=== PATIENT | female | born 1980 | race Caucasian/White ===

== ENCOUNTER 2017-01-17 16:52 | Emergency (ER) | payer OTHER ==
--- NOTE | ~2017-01-17 | ER ---
PATIENT'S NAME: CHRISTOPHE JURADO [facility] AGE: 36 Y [address] ROOM: [place] [address] LOCATION: [facility] ADMIT DATE: 01/17/2017 ER/Outpatient Report DISCHARGE DATE: 01/17/2017 FAMILY PHYSICIAN: Schuyler King MD ATTENDING PHYSICIAN: Bo Angeles Time of Patient Arrival: 1652 hours. Time of Patient Evaluation: 1700 hours. CHIEF COMPLAINT: Lower abdominal pain. HISTORY OF PRESENT ILLNESS: This is a 36-year-old female who presents to the ER with some lower abdominal pain that has been going on for the past day and a half. She states that it makes her feel nauseated and she does have history of constipation. Her last bowel movement was yesterday. She states it was normal for her. She also states that she has had some pain with urination for the past day because of her abdominal pain. She states that she does have a history of ovarian cysts and this is the exact pain that she has when she had these ovarian cysts in the past. She did not see her primary care physician for this pain. ALLERGIES: NO KNOWN ALLERGIES. MEDICATIONS: Please see medication list in nurse's notes. PAST MEDICAL HISTORY: Ovarian cysts. PAST SURGICAL HISTORY: 1. Uterine ablation. 2. Tubes tied. 3. sections. 4. Oral surgery. 5. Tonsils and adenoids. 6. Cholecystectomy. SOCIAL HISTORY: Smokes cigarettes for the last 20 years. Denies any drug or alcohol use. REVIEW OF SYSTEMS: A 10-point review of systems was completed and was negative with the exception of those discussed in the HPI. PATIENT'S NAME: CHRISTOPHE JURADO [facility] AGE: 36 Y [address] ROOM: [place], [place] [address] LOCATION: ED ADMIT DATE: 01/17/2017 ER/Outpatient Report DISCHARGE DATE: 01/17/2017 FAMILY PHYSICIAN: Schuyler King MD ATTENDING PHYSICIAN: Bo Angeles PHYSICAL EXAMINATION: VITAL SIGNS: Height 5 feet 8 inches, stated; weight 127.9 kg, taken; blood pressure is 155/72; pulse 93; respirations 16; temperature 98.9 degrees, tympanically; and saturations 97% on room air. William Coma Score is 15. GENERAL: Alert, morbidly obese female, in no acute distress. HEENT: Head; normocephalic. Eyes; pupils are equal and reactive to light. She does display moist mucous membranes. LUNGS: Clear to auscultation bilaterally. No wheezes or crackles. Normal respiratory effort. HEART: Regular rate and rhythm. No lifts, thrills, or murmurs. ABDOMEN: Soft. It is obese. She has tenderness with palpation across the entire aspect of her lower abdomen. She has no guarding or rebound tenderness. She has hypoactive bowel sounds. SKIN: Warm, dry, and intact. LABORATORY DATA: CBC: White count is 12.8, hemoglobin is 12.4, platelets are 291,000, and ANC is 10.1. CMS: Glucose is 109, otherwise, unremarkable. Her estimated GFR is 56. HCG is less than 1.0. Urinalysis was negative for any infection. There is no blood in her urine. Did do an ultrasound of her pelvis, which does show she has some free fluid in her abdomen. It also shows that she has a small left ovarian cyst. IMPRESSION: Lower abdominal pain with ultrasound findings of a left ovarian cyst. Endometrial wall thickening. There is some free fluid. ASSESSMENT AND PLAN: We did start an IV and did give her some IV fluids along with 4 mg of Zofran and 4 mg of morphine. This did improve her pain. We will dismiss her to home with a prescription for Percocet to use as directed. She may alternate her pain medication as needed with ibuprofen. She is to monitor her symptoms, and should follow up with her primary care physician or [facility] for followup care. The patient understands and agrees with care. BROWN NETTLES PA-C FOR MD ISH LLOYD/zakia /[id number] d: 01/18/17 1302 t: 01/29/17 1732, OUTPATIENT REPORT
[~2017-01-17 16:52] MED LIST: LANSINOH7 GM TOP; MOTRIN800 MG PO; PERCOCET 5-3251 EACH PO; PRENATAL 1+1)(P1 TAB PO
[2017-01-17 17:41] LABS: BASOPHIL # 0.1 K/uL (0.0-0.2); BASOPHIL % 0.8 %; EOSINOPHIL # 0.3 K/uL (0.0-0.5); EOSINOPHIL % 2.1 %; HEMATOCRIT 38.8 % (33.0-46.0); HEMOGLOBIN 12.4 g/dL (11.0-15.0); IMMATURE GRANULOCYTE % 0.2 %; LYMPHOCYTE # 1.8 K/uL (0.8-4.0); MCH 24.3 pg (27.0-34.0); MCV 75.9 fl (83.0-98.0); MONOCYTE # 0.5 K/uL (0.0-1.0); MONOCYTE % 3.9 %; MPV 9.4 fl (9.4-12.4); NEUTROPHIL # (ANC) 10.1 K/uL (1.8-7.8); NRBC % 0 /100WBC (0-0.00); PLATELET COUNT 291 K/uL (150-450); RDW-CV 16.7 % (11.9-14.6); WBC 12.8 K/uL (4.0-11.0)
[2017-01-17 17:42] LABS: RBC 5.11 M/uL (3.50-5.50)
[2017-01-17 17:59] LABS: ALBUMIN 3.7 gm/dL (3.5-5.0); ALK PHOS 109 IU/L (33-138); ALT 19 IU/L (12-78); ANION GAP 9.9 (10.0-19.0); AST 9 IU/L (10-40); BLOOD UREA NITROGEN 7 mg/dL (6-24); CALCIUM 8.6 mg/dL (8.5-10.5); CHLORIDE 107 mMol/L (96-110); CO2 26 mMol/L (22-32); CREATININE 1.1 mg/dL (0.5-1.1); ESTIMATED GFR (MDRD EQUATION) 56; POTASSIUM 3.9 mMol/L (3.7-5.1); SODIUM 139 mMol/L (135-145); TOTAL BILIRUBIN 0.6 mg/dL (0.0-1.5); TOTAL PROTEIN 7.4 g/dL (6.0-8.4)
[2017-01-17 18:28] LABS: BILIRUBIN URINE NEGATIVE (NEGATIVE); BLOOD URINE NEGATIVE /UL (NEGATIVE); COLOR URINE YELLOW (YELLOW); GLUCOSE URINE NEGATIVE (NEGATIVE); KETONE URINE NEGATIVE (NEGATIVE); LEUKOCYTES URINE NEGATIVE /UL (NEGATIVE); NITRITE URINE NEGATIVE (NEGATIVE); PROTEIN URINE NEGATIVE (NEGATIVE); TURBIDITY URINE CLEAR (CLEAR); UROBILINOGEN URINE NORMAL (NORMAL)
== END 2017-01-17 18:50 | disposition disaster alternative care site (69) ==
LOC: GMED 16:52
PROVIDERS: Physician Assistant Medical
DX: N83.202 Unspecified ovarian cyst, left side (principal); F17.210 Nicotine dependence, cigarettes, uncomplicated; Z90.49 Acquired absence of other specified parts of digestive tract; Z98.890 Other specified postprocedural states; Z79.899 Other long term (current) drug therapy
CPT/HCPCS: J2270; J2405; J7030

== ENCOUNTER 2017-04-02 02:53 | Emergency (ER) | payer OTHER ==
--- NOTE | ~2017-04-02 | ER ---
PATIENT'S NAME: [facility]IL [facility] AGE: 36 Y [address] ROOM: [place] [address] LOCATION: ED ADMIT DATE: 04/02/2017 ER/Outpatient Report DISCHARGE DATE: 04/02/2017 FAMILY PHYSICIAN: Schuyler King MD ATTENDING PHYSICIAN: Roberto Oliveira Time of Arrival: 0256 hours. Time of Evaluation: 0310 hours. CHIEF COMPLAINT: Pelvic pain. HISTORY OF PRESENT ILLNESS: The patient is a 36-year-old female who presents to the emergency department today with chief complaint of pelvic pain. She reports it is in her lower abdomen. She has a history of ovarian cysts with PCOS. She feels like it is her cyst-type pain. It started about 3 p.m. She does have Percocet that she took at home without any relief. Denies any fevers or chills. Does have some nausea. No vomiting. No diarrhea or constipation. No urinary frequency, urgency, or painful urination. No vaginal bleeding. No vaginal discharge. Pain is currently 9/10 in severity. PAST MEDICAL HISTORY: PCOS. PAST SURGICAL HISTORY: Tonsils and adenoids, cholecystectomy, tubal ligation, , uterine ablation. SOCIAL HISTORY: The patient smokes half pack per day for 21 years. Denies any alcohol or illicit drug use. ALLERGIES: NO KNOWN DRUG ALLERGIES. MEDICATIONS: Metformin. PRIMARY CARE DOCTOR: Dr. King. OB-EMERGENCY COMMUNICATIONS DISPATCHER DOCTOR: Dr. Davison. PATIENT'S NAME: BASIL JURADOTHE [facility] AGE: 36 Y [address] ROOM: [place] [address] LOCATION: ED ADMIT DATE: 04/02/2017 ER/Outpatient Report DISCHARGE DATE: 04/02/2017 FAMILY PHYSICIAN: Schuyler King MD ATTENDING PHYSICIAN: Roberto Oliveira REVIEW OF SYSTEMS: All systems are reviewed by myself and negative with the exception of those discussed in HPI and past medical history. PHYSICAL EXAMINATION: VITAL SIGNS: Weight 126 kilograms, blood pressure 146/84, pulse 85, respiratory rate 18, temperature 97.1, oxygen saturation 96% on room air. GENERAL: The patient is a 36-year-old female who appears stated age, in mild acute distress secondary to abdominal pain. HEENT: Head; normocephalic, atraumatic. Mucous membranes moist. NECK: Supple. There is no nuchal rigidity. CARDIOVASCULAR: Regular rate and rhythm. LUNGS: Clear to auscultation bilaterally. No wheezes, rales, or rhonchi. ABDOMEN: Soft, mild suprapubic and left lower quadrant tenderness to palpation. There is no rebound, rigidity, or guarding. Positive bowel sounds. MUSCULOSKELETAL: The patient moves all 4 extremities, ambulates with steady gait. SKIN: Warm and dry. There are no rashes or lesions noted. LABORATORY DATA AND X-RAYS: Urinalysis does reveal a urine HCG that is negative. There is 3+ mucus, moderate bacteria, 2 to 5 epithelials, 25 leukocyte esterase. Urine culture is pending. IMPRESSION: 1. Acute left lower quadrant nonsurgical abdominal pain with history of ovarian cyst. 2. Initial visit. EMERGENCY DEPARTMENT COURSE: The patient was brought back to the examination room. Seen and evaluated by myself. Laboratory analysis was obtained as described above. The patient was given Zofran 4 mg ODT as well as morphine 5 mg IM as well as 60 mg of Toradol IM. This has resulted in significant improvement in the patient's symptoms. Her abdominal exam was repeated. She continues to have a nonsurgical abdominal exam at this time. She reports she feels much improved. I have discussed the results with the patient. I have asked that she follows up with Dr. Davison, as she is to call them for an appointment. I have discussed following up with her primary care doctor in 2 to 3 days for re-evaluation. I have discussed return to care instructions including worsening symptoms or any other concerns, to return to the emergency department as soon as possible. The patient is agreeable without further questions at this time. DISPOSITION: PATIENT'S NAME: CHRISTOPHE JURADO [facility] AGE: 36 Y [address] ROOM: [place], [place] [address] LOCATION: ED ADMIT DATE: 04/02/2017 ER/Outpatient Report DISCHARGE DATE: 04/02/2017 FAMILY PHYSICIAN: Schuyler King MD ATTENDING PHYSICIAN: Roberto Oliveira The patient discharged home in good condition. DO CHARLES MATHEW/lucindal /[id number] d: 04/02/17 0450 t: 04/04/17 0643, OUTPATIENT REPORT
[2017-04-02 03:55] LABS: BILIRUBIN URINE NEGATIVE (NEGATIVE); BLOOD URINE NEGATIVE /UL (NEGATIVE); COLOR URINE YELLOW (YELLOW); GLUCOSE URINE NEGATIVE (NEGATIVE); KETONE URINE NEGATIVE (NEGATIVE); LEUKOCYTES URINE 25 /UL (NEGATIVE); NITRITE URINE NEGATIVE (NEGATIVE); PROTEIN URINE 15 mg/dL (NEGATIVE); SPEC GRAVITY URINE 1.025 (1.003-1.035); TURBIDITY URINE CLEAR (CLEAR); UROBILINOGEN URINE 4 mg/dL (NORMAL)
[2017-04-02 04:05] LABS: BACTERIA URINE MODERATE (NEGATIVE); MUCUS URINE 3+ (NEGATIVE); RBC URINE NEGATIVE #/HPF (NEGATIVE); WBC URINE 0-2 #/HPF (NEGATIVE)
== END 2017-04-02 04:16 | disposition disaster alternative care site (69) ==
LOC: GMED 02:53
PROVIDERS: Emergency Medicine
DX: R10.32 Left lower quadrant pain (principal); F17.210 Nicotine dependence, cigarettes, uncomplicated; Z98.890 Other specified postprocedural states; Z90.49 Acquired absence of other specified parts of digestive tract; Z98.51 Tubal ligation status; Z79.84 Long term (current) use of oral hypoglycemic drugs; Z79.899 Other long term (current) drug therapy
CPT/HCPCS: J1885; J2270